=== PATIENT | female | born 2000 | race Hispanic/Latino ===

== ENCOUNTER 2025-01-19 23:32 | Emergency (ER) | payer OTHER ==
[~2025-01-19] VITALS: Ht 160 cm; Wt 73.9 kg
[2025-01-20 00:30] VITALS: PULSE 70; RESP 18; TEMP 98.1
[2025-01-20] MEDS ORDERED: NAPROXEN250 MG PO (01:40)
[2025-01-20] MEDS ORDERED: CYCLOBENZAPRINE5 MG PO (01:41)
[2025-01-20 01:50] VITALS: BP 127/86; PULSE 70; RESP 18; TEMP 98; O2SAT 100
== END 2025-01-20 01:50 | disposition home or self-care (01) ==
LOC: FSED 01-20 00:35
DX: S60.221A Contusion of right hand, initial encounter (principal); M54.9 Dorsalgia, unspecified; M79.89 Other specified soft tissue disorders; W07.XXXA Fall from chair, initial encounter; Y92.89 Other specified places as the place of occurrence of the external cause
CPT/HCPCS: 74176; 99284